=== PATIENT | female | born 1975 | race American Indian/Alaskan Native ===

== ENCOUNTER 2016-11-12 22:59 | Emergency (ER) | payer SELFPAY ==
[2016-11-13 01:23] LABS: Urine Drugs of Abuse Note Disclamer
[2016-11-13 01:24] LABS: Basophils % (Auto) 0.7 % (0.0-1.8); Eosinophils % (Auto) 1.4 % (0.0-4.3); Hematocrit 34.1 % (30.3-42.9); Hemoglobin 10.8 gm/dl (10.1-14.3); Mean Corpuscular HGB Conc 32 % (30-34); Mean Corpuscular Volume 76 fl (79-97); Platelet Count 266 K/mm3 (140-440); Red Blood Count 4.47 M/mm3 (3.65-5.03); Red Cell Distribution Width 17.9 % (13.2-15.2); White Blood Count 5.6 K/mm3 (4.5-11.0)
[2016-11-13 01:35] LABS: Bilirubin,Urine NEG (Negative); Blood,Urine NEG (Negative); Ketones,Urine NEG (Negative); Leukocyte Esterase,Urine NEG (Negative); Nitrite,Urine NEG (Negative); Protein,Urine <15 mg/dL mg/dL (Negative)
[2016-11-13 01:43] LABS: Anion Gap 15 mmol/L; BUN/Creatinine Ratio 16.66; Blood Urea Nitrogen 15 mg/dL (7-17); Calcium 8.3 mg/dL (8.4-10.2); Carbon Dioxide 27 mmol/L (22-30); Chloride 102.3 mmol/L (98-107); Glucose 89 mg/dL (65-100); Potassium 3.9 mmol/L (3.6-5.0); Sodium 140 mmol/L (137-145)
[2016-11-13 01:59] LABS: Mean Corpuscular Hemoglobin 24 pg (28-32)
[2016-11-13] MEDS ORDERED: TYLENOL PO PRN (02:34)
[2016-11-13] MEDS ORDERED: MILK OF MAGNESIA PO PRN (02:34)
[2016-11-13] MEDS ORDERED: ALUM-MAG HYDROX-SIMETH 200-200-20MG/5ML PO PRN (02:34)
--- NOTE | 2016-11-13 02:39 | Emergency Department Report ---
HPI - General Chief Complaint: Psych Time Seen by Provider: 11/13/16 01:45 - HPI HPI: The patient is a 41-year-old female presents for evaluation of mental health. The patient reports constant severe sadness and depression for the past one day , associated with suicidal ideation. She states that she has thought of a plan to overdose on pills or burn down her house. The patient denies fever, headache , unexplained weight loss or weight gain, heat or cold intolerance, skin, hair, or nail changes, neuro deficits, homicidal ideations, or auditory or visual hallucinations. ED Past Medical Hx - Past Medical History Previous Medical History?: Yes Hx Hypertension: Yes Hx CVA: No Hx Heart Attack/AMI: No Hx Congestive Heart Failure: No Hx Diabetes: No Hx Deep Vein Thrombosis: No Hx Pulmonary Embolism: No Hx GERD: No Hx Liver Disease: No Hx Renal Disease: No Hx of Cancer: No Hx Sickle Cell Disease: No Hx Arthritis: No Hx Headaches / Migraines: No Hx Seizures: No Hx Kidney Stones: No Hx Psychiatric Treatment: Yes Hx Asthma: No Hx COPD: No Hx Tuberculosis: No Hx Dementia: No Hx HIV: No Additional medical history: Anxiety, depression, schizophrenia - Surgical History Past Surgical History?: No - Social History Smoking Status: Current Every Day Smoker - Medications Home Medications: Home Medications Medication Instructions Recorded Confirmed Last Taken Type Ferrous Sulfate 325 mg PO Q12HR 11/13/16 11/13/16 11/13/16 History Loratadine 10 mg PO QDAY 11/13/16 11/13/16 11/13/16 History Losartan [Cozaar] 100 mg PO QDAY 11/13/16 11/13/16 11/13/16 History RisperiDONE 1 mg PO QHS 11/13/16 11/13/16 11/12/16 History Sertraline HCl 100 mg PO QAM 11/13/16 11/13/16 11/13/16 History Xanax TAB 1 mg PO Q8HR 11/13/16 11/13/16 11/13/16 History amLODIPine 10 mg PO QDAY 11/13/16 11/13/16 11/13/16 History ED Review of Systems ROS: Stated complaint: MEDICAL CLEARANCE Other details as noted in HPI Constitutional: denies: fever ENT: denies: throat or neck pain Respiratory: denies: cough, shortness of breath Cardiovascular: denies: chest pain Endocrine: denies unexplained weight loss or gain Gastrointestinal: denies: abdominal pain, nausea Genitourinary: denies: dysuria Musculoskeletal: denies: leg swelling Skin: denies: rash Neurological: denies: headache Hematological/Lymphatic: denies: easy bleeding or easy bruising Psych: reports sadness, SI Physical Exam - Physical Exam Vital Signs: Vital Signs 11/12/16 11/13/16 23:52 00:02 Temperature 98.3 F Pulse Rate 62 Respiratory 14 14 Rate Blood Pressure 126/90 Blood Pressure 126/90 [Right] O2 Sat by Pulse 97 Oximetry Physical Exam: General: well-nourished, well-developed, no acute distress Head: Normocephalic, atraumatic Eyes: normal sclera ENT: Mucous membranes are pink and moist Neck: trachea midline, neck supple, No neck stiffness, no cervical adenopathy Respiratory: Breath sounds equal bilaterally, no wheezing, rales, or rhonchi Cardio: S1 and S2 present, no murmurs, rubs, gallops, capillary refill is brisk Abdomen: Normoactive bowel sounds, soft abdomen, no rigidity, no guarding or rebound tenderness Chest WALL/Back: No tenderness to palpation of the chest wall, no CVA tenderness with percussion Musc: No pitting edema Skin: No rash Neuro: no facial drooping, normal speech Psych: flat affect, depressed mood, positive suicidal ideations ED Course Vital Signs 11/12/16 11/13/16 23:52 00:02 Temperature 98.3 F Pulse Rate 62 Respiratory 14 14 Rate Blood Pressure 126/90 Blood Pressure 126/90 [Right] O2 Sat by Pulse 97 Oximetry ED Medical Decision Making - Lab Data Result diagrams: 11/13/16 01:04 11/13/16 01:04 - Medical Decision Making The patient was seen and examined by myself. The patient is placed on a property assessment monitor and continuous pulse ox. On initial evaluation, the patient was found to be in no distress. Labs are obtained. Lab results are grossly unremarkable. The patient is medically clear. Mental health is consulted. Mental health evaluates the patient and agrees that the patient is at risk of harm to self. A 1013 is completed. The patient will be admitted to a psychiatric facility once bed placement is obtained. Critical care attestation.: If time is entered above; I have spent that time in minutes in the direct care of this critically ill patient, excluding procedure time. ED Disposition Clinical Impression: Suicidal ideations Depression Qualifiers: Depression Type: unspecified Qualified Code(s): F32.9 - Major depressive disorder, single episode, unspecified Disposition: DC/TX PSY HOSP/PSY UNIT Is pt being admited?: No Does the pt Need Aspirin: No Condition: Stable Referrals: PRIMARY CARE, [Primary Care Provider] - 3-5 Days Time of Disposition: 02:36
[2016-11-13 09:45] VITALS: BP 128/84
[2016-11-13] MEDS ORDERED: COZAAR PO SCH (10:00)
[2016-11-13] MEDS ORDERED: CLARITIN PO SCH (10:00)
[2016-11-13] MEDS ORDERED: NORVASC PO SCH (10:00)
[2016-11-13] MEDS ORDERED: FEOSOL PO SCH (10:00)
== END 2016-11-13 14:08 ==
LOC: EEVIPCON 22:59 → ED 22:59
DX: F32.9 Major depressive disorder, single episode, unspecified (principal); R45.851 Suicidal ideations; I10 Essential (primary) hypertension; F20.9 Schizophrenia, unspecified; F41.9 Anxiety disorder, unspecified; F17.200 Nicotine dependence, unspecified, uncomplicated
CPT/HCPCS: 36415; 80048; 80307; 81001; 84703; 85025; 99285; G0480; 80320

== ENCOUNTER 2018-04-25 21:34 | Emergency (ER) | payer OTHER ==
[2018-04-25] MEDS ORDERED: BENADRYL IV ONE (21:54)
[2018-04-25 21:56] VITALS: BP 136/87
--- NOTE | 2018-04-25 22:05 | Emergency Department Report ---
HPI - General Chief Complaint: Allergic Reaction Time Seen by Provider: 04/25/18 21:54 - HPI HPI: 42-year-old female with a past medical history of hypertension, schizophrenia, anxiety, and depression the hospital feeling like her mouth is tight. Symptoms started 3 hours prior to arrival. Patient recently restarted Invega prescribed by her psychiatrist. She has not been on his medication for 2 months. She was given several samples of Invega 9 mg tablets. Patient states it is prescribed twice a day. Last night she restarted the medication and took 3 tablets to help her go to sleep. Patient denies wheezing, shortness of breath, throat tightness, or skin rash. ED Past Medical Hx - Past Medical History Previous Medical History?: Yes Hx Hypertension: Yes Hx CVA: No Hx Heart Attack/AMI: No Hx Congestive Heart Failure: No Hx Diabetes: No Hx Deep Vein Thrombosis: No Hx Pulmonary Embolism: No Hx GERD: No Hx Liver Disease: No Hx Renal Disease: No Hx Sickle Cell Disease: No Hx Arthritis: No Hx Headaches / Migraines: No Hx Seizures: No Hx Kidney Stones: No Hx Psychiatric Treatment: Yes Hx Asthma: No Hx COPD: No Hx Tuberculosis: No Hx Dementia: No Hx HIV: No Additional medical history: Anxiety, depression, schizophrenia - Surgical History Past Surgical History?: No - Social History Smoking Status: Never Smoker Substance Use Type: None - Medications Home Medications: Home Medications Medication Instructions Recorded Confirmed Last Taken Type Ferrous Sulfate 325 mg PO Q12HR 11/13/16 11/13/16 11/13/16 History Loratadine 10 mg PO QDAY 11/13/16 11/13/16 11/13/16 History Losartan [Cozaar] 100 mg PO QDAY 11/13/16 11/13/16 11/13/16 History RisperiDONE 1 mg PO QHS 11/13/16 11/13/16 11/12/16 History Sertraline HCl 100 mg PO QAM 11/13/16 11/13/16 11/13/16 History Xanax TAB 1 mg PO Q8HR 11/13/16 11/13/16 11/13/16 History amLODIPine 10 mg PO QDAY 11/13/16 11/13/16 11/13/16 History Benztropine [Cogentin] 1 mg PO BID #60 tab 04/25/18 Unknown Rx ED Review of Systems ROS: Stated complaint: SLURRED SPEECH Other details as noted in HPI Comment: All other systems reviewed and negative Physical Exam - Physical Exam Vital Signs: Vital Signs 04/25/18 21:51 Temperature 98.1 F Pulse Rate 63 Respiratory 18 Rate Blood Pressure 136/87 O2 Sat by Pulse 100 Oximetry Physical Exam: General: No limitations, patient is alert in no acute distress Head exam: Atraumatic, normocephalic Eyes exam: Normal appearance, pupils equal reactive to light, extraocular movements intact ENT: Moist mucous membrane, patient seems to have spasm of her face muscles make it difficult for her to speak, smile, or open her mouth wide. Neck exam: Normal inspection, full range of motion, no meningismus nontender Respiratory exam: Clear to auscultation bilateral, no wheezes, rales, crackles Cardiovascular: Normal rate and rhythm, normal heart sounds Abdomen: Soft, nondistended, and nontender, with normal bowel sounds, no rebound, or guarding Extremity: Full range of motion normal inspection no deformity Back: Normal Inspection, full range of motion, no tenderness Neurologic: Alert, oriented x3, patient seems to have spasm of her face muscles make it difficult for her to speak, smiled, or over her mouth wide. no motor or sensory deficit Psychiatric: normal affect, normal mood Skin: Warm, dry, intact ED Course Vital Signs 04/25/18 21:51 Temperature 98.1 F Pulse Rate 63 Respiratory 18 Rate Blood Pressure 136/87 O2 Sat by Pulse 100 Oximetry - Reevaluation(s) Reevaluation #1: 04/25/18 22:58 Patient's symptoms improved after Benadryl and at baseline ED Medical Decision Making - Medical Decision Making According to pharmacology resources Invega should be started at 6 mg every morning with a maximum daily dose of 12 mg per day. I informed patient she should probably take this medication (9mg) once a day and not twice a day and definitely not 3 tablets at one time. She states she does not know what she did with the paperwork regarding appropriate daily dosing and her samples do not include instructions on the medication bottle. Patient had dramatic improvement after Benadryl. Patient instructed to restart medication once a day and Cogentin will also be prescribed. If she continues to have recurrent dystonia then her psychiatrist would need to adjust her medication. At this time I believe this reaction is secondary to taking too much of her prescribed medication. Critical care attestation.: If time is entered above; I have spent that time in minutes in the direct care of this critically ill patient, excluding procedure time. ED Disposition Clinical Impression: Dystonic drug reaction Disposition: TO HOME OR SELFCARE Is pt being admited?: No Does the pt Need Aspirin: No Condition: Stable Instructions: Spasmodic Torticollis (ED) Additional Instructions: Take the medication as prescribed. Follow up with your doctor. Return if symptoms worsen as indicated by your discharge instructions. Take 1 tablet of the Invega 9 mg once a day. Contact your prescribing physician to reconfirm the appropriate dosage. If you continues to have spasms of your face muscles, tongue, or neck muscles then you will need to discontinue the Invega and have an alternative medication prescribed by your psychiatrist. Prescriptions: Benztropine [Cogentin] 1 mg PO BID #60 tab Referrals: psychiatrist Benjie conteh [Other] - 2-3 Days Time of Disposition: 23:01
== END 2018-04-25 23:20 | disposition home or self-care (01) ==
LOC: ED 21:34
DX: G24.02 Drug induced acute dystonia (principal); I10 Essential (primary) hypertension; F32.9 Major depressive disorder, single episode, unspecified; F41.9 Anxiety disorder, unspecified; F20.9 Schizophrenia, unspecified; Z79.899 Other long term (current) drug therapy
CPT/HCPCS: 96374; 99282; J1200

== ENCOUNTER 2018-08-14 04:41 | Emergency (ER) | payer SELFPAY ==
[2018-08-14] MEDS ORDERED: IBUPROFEN PO ONE ×2 (06:01→06:12)
--- NOTE | 2018-08-14 06:07 | Emergency Department Report ---
ED General Adult HPI - General Chief complaint: Pain General Stated complaint: leg and arm pain Time Seen by Provider: 08/14/18 06:00 Source: patient Mode of arrival: Ambulatory Limitations: No Limitations - History of Present Illness Initial comments: 43-year-old -[place] female with a past medical history of chronic bilateral leg and arm pain. 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 She reports cold exacerbates her pain. She is followed by Dr. Kory Rodriguez next appointment she thinks is on 08/30/2018. Patient reports that she takes oxycodone for pain and has some at home. Patient has a past medical history of hypertension anxiety, depression, schizophrenia and sickle cell trait. Patient denies any worsening of her pain denies any urinary signs or symptoms denies any recent traumas. - Related Data Home Medications Medication Instructions Recorded Confirmed Last Taken Ferrous Sulfate 325 mg PO Q12HR 11/13/16 11/13/16 11/13/16 Loratadine 10 mg PO QDAY 11/13/16 11/13/16 11/13/16 Losartan [Cozaar] 100 mg PO QDAY 11/13/16 11/13/16 11/13/16 RisperiDONE 1 mg PO QHS 11/13/16 11/13/16 11/12/16 Sertraline HCl 100 mg PO QAM 11/13/16 11/13/16 11/13/16 Xanax TAB 1 mg PO Q8HR 11/13/16 11/13/16 11/13/16 amLODIPine 10 mg PO QDAY 11/13/16 11/13/16 11/13/16 Previous Rx's Medication Instructions Recorded Last Taken Type Benztropine [Cogentin] 1 mg PO BID #60 tab 04/25/18 Unknown Rx Allergies Allergy/AdvReac Type Severity Reaction Status Date / Time No Known Allergies Allergy Verified 11/13/16 00:53 ED Review of Systems ROS: Stated complaint: leg and arm pain Other details as noted in HPI Comment: All other systems reviewed and negative Musculoskeletal: arthralgia ED Past Medical Hx - Past Medical History Previous Medical History?: Yes Hx Hypertension: Yes Hx CVA: No Hx Heart Attack/AMI: No Hx Congestive Heart Failure: No Hx Diabetes: No Hx Deep Vein Thrombosis: No Hx Pulmonary Embolism: No Hx GERD: No Hx Liver Disease: No Hx Renal Disease: No Hx Sickle Cell Disease: No Hx Arthritis: No Hx Headaches / Migraines: No Hx Seizures: No Hx Kidney Stones: No Hx Psychiatric Treatment: Yes Hx Asthma: No Hx COPD: No Hx Tuberculosis: No Hx Dementia: No Hx HIV: No Additional medical history: Anxiety, depression, schizophrenia - Surgical History Past Surgical History?: No - Social History Smoking Status: Never Smoker Substance Use Type: None - Medications Home Medications: Home Medications Medication Instructions Recorded Confirmed Last Taken Type Ferrous Sulfate 325 mg PO Q12HR 11/13/16 11/13/16 11/13/16 History Loratadine 10 mg PO QDAY 11/13/16 11/13/16 11/13/16 History Losartan [Cozaar] 100 mg PO QDAY 11/13/16 11/13/16 11/13/16 History RisperiDONE 1 mg PO QHS 11/13/16 11/13/16 11/12/16 History Sertraline HCl 100 mg PO QAM 11/13/16 11/13/16 11/13/16 History Xanax TAB 1 mg PO Q8HR 11/13/16 11/13/16 11/13/16 History amLODIPine 10 mg PO QDAY 11/13/16 11/13/16 11/13/16 History Benztropine [Cogentin] 1 mg PO BID #60 tab 04/25/18 Unknown Rx ED Physical Exam - General Limitations: No Limitations General appearance: alert, in no apparent distress - Head Head exam: Present: atraumatic, normocephalic - Eye Eye exam: Present: EOMI - ENT ENT exam: Present: mucous membranes moist - Extremities Exam Extremities exam: Present: normal inspection, full ROM - Back Exam Back exam: Present: normal inspection - Neurological Exam Neurological exam: Present: alert, oriented X3, normal gait - Psychiatric Psychiatric exam: Present: normal affect, normal mood - Skin Skin exam: Present: warm, dry, intact, normal color. Absent: rash ED Medical Decision Making - Medical Decision Making Patient has been evaluated by this provider in fast track. Patient was given ibuprofen 600 mg for pain management. Patient reports that she will go home and take her oxycodone. I advised patient to follow up with Dr. Kory Rodriguez. Critical care attestation.: If time is entered above; I have spent that time in minutes in the direct care of this critically ill patient, excluding procedure time. ED Disposition Clinical Impression: Chronic pain of lower extremity, bilateral Chronic upper extremity pain Qualifiers: Laterality: bilateral Qualified Code(s): M79.601 - Pain in right arm; M79.602 - Pain in left arm; G89.29 - Other chronic pain Disposition: DC- TO HOME OR SELFCARE Is pt being admited?: No Does the pt Need Aspirin: No Condition: Stable Additional Instructions: Please take her chronic pain medication is given T by Dr. Kory Rodriguez. Please keep all appointments with him. He can take ibuprofen in between her oxycodone to help manage her pain. Referrals: KORY RODRIGUEZ MD [Staff Physician] - 3-5 Days
[2018-08-14 06:14] VITALS: BP 118/68
== END 2018-08-14 06:10 | disposition home or self-care (01) ==
LOC: ED 04:41
DX: G89.29 Other chronic pain (principal); M79.601 Pain in right arm; M79.602 Pain in left arm; I10 Essential (primary) hypertension; F32.9 Major depressive disorder, single episode, unspecified; F20.9 Schizophrenia, unspecified
CPT/HCPCS: 99282

== ENCOUNTER 2020-02-26 18:14 | Emergency (ER) | payer OTHER, MEDICARE ==
[2020-02-26 18:21] VITALS: BP 136/95
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
== END 2020-02-26 21:40 | disposition home or self-care (01) ==
LOC: ED 18:14
DX: S16.1XXA Strain of muscle, fascia and tendon at neck level, initial encounter (principal); S46.812A Strain of other muscles, fascia and tendons at shoulder and upper arm level, left arm, initial encounter; S29.019A Strain of muscle and tendon of unspecified wall of thorax, initial encounter; F41.9 Anxiety disorder, unspecified; F32.9 Major depressive disorder, single episode, unspecified; F20.9 Schizophrenia, unspecified; Z79.899 Other long term (current) drug therapy; V49.59XA Passenger injured in collision with other motor vehicles in traffic accident, initial encounter; Y93.89 Activity, other specified; Y92.488 Other paved roadways as the place of occurrence of the external cause; Y99.8 Other external cause status
CPT/HCPCS: 72040; 72072; 99283

== ENCOUNTER 2020-05-12 12:00 | Emergency (ER) | payer MEDICARE, OTHER ==
[2020-05-12 12:24] VITALS: BP 143/98
--- NOTE | 2020-05-12 13:57 | Emergency Department Report ---
ED Back Pain/Injury HPI - General Chief Complaint: Back Pain/Injury Stated Complaint: BACK PAINS Time Seen by Provider: 05/12/20 13:53 Source: patient Limitations: No Limitations - History of Present Illness Initial Comments: Patient is a 44-year-old female presents emergency room with complaints of lower back pain that exacerbated today. She states that she has had lower back pain since she began a job in November 2019. She states that for the job she does a lot of heavy lifting and pulling of boxes. She states that today she was doing heavy lifting when she exacerbated her back pain. She denies any fall or injury. She denies any fever, nausea, vomiting, diarrhea, urinary symptoms, numbness, weakness, bowel or bladder incontinence. She denies any unexplained weight loss. She has a past medical history of hypertension, depression, anxiety. No allergies to medications. Currently on her menstrual cycle. She denies any history of IV drug use, steroid use, history of cancer. - Related Data Home Medications Medication Instructions Recorded Confirmed Last Taken Ferrous Sulfate 325 mg PO Q12HR 11/13/16 11/13/16 11/13/16 Loratadine 10 mg PO QDAY 11/13/16 11/13/16 11/13/16 Losartan [Cozaar] 100 mg PO QDAY 11/13/16 11/13/16 11/13/16 RisperiDONE 1 mg PO QHS 11/13/16 11/13/16 11/12/16 Sertraline HCl 100 mg PO QAM 11/13/16 11/13/16 11/13/16 Xanax TAB 1 mg PO Q8HR 11/13/16 11/13/16 11/13/16 amLODIPine 10 mg PO QDAY 11/13/16 11/13/16 11/13/16 Previous Rx's Medication Instructions Recorded Last Taken Type Benztropine [Cogentin] 1 mg PO BID #60 tab 04/25/18 Unknown Rx Naproxen [EC-Naprosyn] 500 mg PO BID PRN #20 tablet. 02/26/20 Unknown Rx Menthol/Camphor [[place] 1 applicatio TP BID #8 oint...g. 05/12/20 Unknown Rx Ointment] Naproxen [EC-Naprosyn] 500 mg PO BID PRN #14 tablet. 05/12/20 Unknown Rx methOCARBAMOL [Robaxin TAB] 500 mg PO BID PRN #14 tab 05/12/20 Unknown Rx Allergies Allergy/AdvReac Type Severity Reaction Status Date / Time No Known Allergies Allergy Verified 02/26/20 18:16 ED Review of Systems ROS: Stated complaint: BACK PAINS Other details as noted in HPI Comment: All other systems reviewed and negative ED Past Medical Hx - Past Medical History Previous Medical History?: Yes Hx Hypertension: Yes Hx CVA: No Hx Heart Attack/AMI: No Hx Congestive Heart Failure: No Hx Diabetes: No Hx Deep Vein Thrombosis: No Hx Pulmonary Embolism: No Hx GERD: No Hx Liver Disease: No Hx Renal Disease: No Hx Sickle Cell Disease: No Hx Arthritis: No Hx Headaches / Migraines: No Hx Seizures: No Hx Kidney Stones: No Hx Psychiatric Treatment: Yes Hx Asthma: No Hx COPD: No Hx Tuberculosis: No Hx Dementia: No Hx HIV: No Additional medical history: Anxiety, depression, schizophrenia - Surgical History Past Surgical History?: No - Social History Smoking Status: Never Smoker Substance Use Type: None - Medications Home Medications: Home Medications Medication Instructions Recorded Confirmed Last Taken Type Ferrous Sulfate 325 mg PO Q12HR 11/13/16 11/13/16 11/13/16 History Loratadine 10 mg PO QDAY 11/13/16 11/13/16 11/13/16 History Losartan [Cozaar] 100 mg PO QDAY 11/13/16 11/13/16 11/13/16 History RisperiDONE 1 mg PO QHS 11/13/16 11/13/16 11/12/16 History Sertraline HCl 100 mg PO QAM 11/13/16 11/13/16 11/13/16 History Xanax TAB 1 mg PO Q8HR 11/13/16 11/13/16 11/13/16 History amLODIPine 10 mg PO QDAY 11/13/16 11/13/16 11/13/16 History Benztropine [Cogentin] 1 mg PO BID #60 tab 04/25/18 Unknown Rx Naproxen [EC-Naprosyn] 500 mg PO BID PRN #20 tablet. 02/26/20 Unknown Rx Menthol/Camphor [[place] 1 applicatio TP BID #8 oint...g. 05/12/20 Unknown Rx Ointment] Naproxen [EC-Naprosyn] 500 mg PO BID PRN #14 tablet. 05/12/20 Unknown Rx methOCARBAMOL [Robaxin TAB] 500 mg PO BID PRN #14 tab 05/12/20 Unknown Rx ED Physical Exam - General Limitations: No Limitations General appearance: alert, in no apparent distress - Head Head exam: Present: atraumatic, normocephalic - Eye Eye exam: Present: normal appearance - ENT ENT exam: Present: mucous membranes moist - Neck Neck exam: Present: normal inspection, full ROM. Absent: tenderness - Respiratory Respiratory exam: Present: normal lung sounds bilaterally. Absent: respiratory distress, wheezes, rales, rhonchi, stridor, chest wall tenderness, accessory muscle use, decreased breath sounds, prolonged expiratory - Cardiovascular Cardiovascular Exam: Present: regular rate, normal rhythm, normal heart sounds. Absent: systolic murmur, diastolic murmur, rubs, gallop - Back Exam Back exam: Present: normal inspection, full ROM, paraspinal tenderness (bilateral lumbar paraspinal muscular ttp, no midline C-spine, T-spine or L- spine ttp, no step offs, no deformities). Absent: vertebral tenderness - Neurological Exam Neurological exam: Present: alert, oriented X3, CN II-XII intact, normal gait. Absent: motor sensory deficit - Psychiatric Psychiatric exam: Present: normal affect, normal mood - Skin Skin exam: Present: warm, dry, intact ED Course Vital Signs 05/12/20 05/12/20 12:20 14:43 Temperature 97.8 F Pulse Rate 113 H 99 H Respiratory 16 Rate Blood Pressure 143/98 O2 Sat by Pulse 100 100 Oximetry ED Medical Decision Making - Lab Data Vital Signs 05/12/20 05/12/20 12:20 14:43 Temperature 97.8 F Pulse Rate 113 H 99 H Respiratory 16 Rate Blood Pressure 143/98 O2 Sat by Pulse 100 100 Oximetry - Medical Decision Making Patient is a 44-year-old female presents emergency room with complaints of lower back pain that exacerbated today. She states that she has had lower back pain since she began a job in November 2019. She states that for the job she does a lot of heavy lifting and pulling of boxes. She states that today she was doing heavy lifting when she exacerbated her back pain. She denies any fall or injury. She denies any fever, nausea, vomiting, diarrhea, urinary symptoms, numbness, weakness, bowel or bladder incontinence. She denies any unexplained weight loss. She has a past medical history of hypertension, depression, anxiety. No allergies to medications. Currently on her menstrual cycle. She denies any history of IV drug use, steroid use, history of cancer. Initial vitals with elevated heart rate which improved upon repeat. On exam: bilateral lumbar paraspinal muscular ttp, no midline C-spine, T-spine or L-spine ttp, no step offs, no deformities, no focal neuro deficits. Examination appears most consistent with acute lumbar strain. She has no red flag warning signs of back pain, no trauma, no unexplained weight loss, no neuro deficits, age is not greater than 50, no fever, no IV drug use, no steroid use, no history of cancer. Patient given prescription for naproxen, Robaxin, [place] balm ointment. Advised patient to please take medication as prescribed as needed. Use ice pack, heating pad, rest, Epsom salt bath. Follow-up with your primary care doctor. Follow-up with orthopedic/spine doctor. Do not drive or operate machinery while taking muscle relaxer due to potential for drowsiness. Return to emergency room for any new or worsening symptoms. - Differential Diagnosis Strain, sprain, fracture, dislocation, DDD, bulging disc, herniated disc Critical care attestation.: If time is entered above; I have spent that time in minutes in the direct care of this critically ill patient, excluding procedure time. ED Disposition Clinical Impression: Acute lumbar myofascial strain Qualifiers: Encounter type: initial encounter Qualified Code(s): S39.012A - Strain of muscle, fascia and tendon of lower back, initial encounter Disposition: DC-01 TO HOME OR SELFCARE Is pt being admited?: No Does the pt Need Aspirin: No Condition: Stable Instructions: Muscle Strain (ED) Additional Instructions: please take medication as prescribed as needed. Use ice pack, heating pad, rest, Epsom salt bath. Follow-up with your primary care doctor. Follow-up with orthopedic/spine doctor. Do not drive or operate machinery while taking muscle relaxer due to potential for drowsiness. Return to emergency room for any new or worsening symptoms. Prescriptions: Naproxen [EC-Naprosyn] 500 mg PO BID PRN #14 tablet.dr YANEZ Reason: pain methOCARBAMOL [Robaxin TAB] 500 mg PO BID PRN #14 tab PRN Reason: pain Menthol/Camphor [[place] Ointment] 1 applicatio TP BID #8 oint...g. Referrals: ZULEMA GOETZ MD [Staff Physician] - 2-3 Days [facility] [Provider Group] - 2-[address] [facility] [Provider Group] - 2-3 Days CHARLIE MAHMOOD II, MD [Staff Physician] - 2-3 Days Time of Disposition: 13:59 Print Language: MACEDONIAN
== END 2020-05-12 14:44 | disposition home or self-care (01) ==
LOC: ED 12:00
DX: S39.012A Strain of muscle, fascia and tendon of lower back, initial encounter (principal); I10 Essential (primary) hypertension; F20.9 Schizophrenia, unspecified; Z79.899 Other long term (current) drug therapy; X50.0XXA Overexertion from strenuous movement or load, initial encounter; X50.9XXA Other and unspecified overexertion or strenuous movements or postures, initial encounter; Y93.89 Activity, other specified; Y92.89 Other specified places as the place of occurrence of the external cause; Y99.0 Civilian activity done for income or pay
CPT/HCPCS: 99282